=== PATIENT | male | born 1970 | race Caucasian/White ===

== ENCOUNTER 2022-12-20 23:14 | Emergency (ER) | payer MEDICARE ==
[2022-12-20 23:24] VITALS: BP 147/83
[2022-12-20] MEDS ORDERED: AMOX/CLAV 875 MG/125 MG TABLET PO STA (23:32)
--- NOTE | 2022-12-20 23:39 | ED Physician Documentation ---
PD HPI UPPER EXT INJURY - Stated complaint Stated Complaint: CAT BITE - Chief complaint Chief Complaint: Wound - History obtained from History obtained from: Patient - Additonal information Additional information: Patient is a 52-year-old male presenting for evaluation of cat scratches and bites to both hands that occurred tonight. Patient is visiting a friend with his cat from [place] and states that his cat is irritated in a new environment.The friend that he is staying at also sustained a bite and is also being evaluated here. Patient states he has had a cat approximately 1 month and is unsure of its immunizations.Cat is otherwise been acting appropriately. Patient reports his last tetanus was 2 years ago. He denies taking a blood thinner or being diabetic. Review of Systems Constitutional: denies: Fever Cardiac: denies: Chest pain / pressure Respiratory: denies: Dyspnea Skin: reports: Laceration (s) PD PAST MEDICAL HISTORY - Present Medications Home Medications: Ambulatory Orders Medication Instructions Recorded Confirmed Amox/Clav 875/125 [Augmentin] 1 each PO Q12H #14 tablet 12/20/22 - Allergies Allergies/Adverse Reactions: Allergies Allergy/AdvReac Type Severity Reaction Status Date / Time No Known Drug Allergies Allergy Verified 12/20/22 23:22 PD ED PE NORMAL - General General: Alert and oriented X 3, No acute distress, Well developed/nourished - HEENT HEENT: Atraumatic - Neck Neck: Supple, no meningeal sign - Cardiac Cardiac: Strong equal pulses - Respiratory Respiratory: No respiratory distress - Extremities Extremities: Other (Multiple superficial lacerations and wounds to bilateral hands on the dorsal surfaces, no surrounding erythema, normal range of motion at all joints, motor and sensation intact) Results - Vitals Vitals: Vital Signs - 24 hr 12/20/22 23:22 Temperature 36.5 C Heart Rate 83 Respiratory 16 Rate Blood Pressure 147/83 H O2 Saturation 98 Oxygen O2 Source Room air PD Medical Decision Making - ED course ED course: Patient with superficial wounds to both hands from cat bite and scratches. His tetanus is up-to-date. No current signs for infection. No signs of tendon injury. Bleeding is controlled.Patient to be started on Augmentin. Understands treatment plan with continued antibiotics as well as wound care. He is advised on concerning symptoms to return for. Cat Belongs to the patient and he is able to monitor it for any abnormal symptoms. Departure - Departure Disposition: 01 Home, Self Care Clinical Impression: Cat bite of multiple sites, Cat scratch of multiple sites Condition: Stable Instructions: Bites Scratches Animal, ED Bite Animal General Prescriptions: Amox/Clav 875/125 [Augmentin] 1 each PO Q12H #14 tablet Comments: Please continue to keep your wounds clean and dry. I am starting you on an antibiotic and have sent this prescription to [facility] [place]. Return to the emergency department with any concerning symptoms Such as infection. I would recommend taking your cat to a local vet for vaccinations. Discharge Date/Time: 12/20/22 23:49
== END 2022-12-20 23:49 | disposition home or self-care (01) ==
LOC: ED 23:14
DX: S61.459A Open bite of unspecified hand, initial encounter (principal); W55.01XA Bitten by cat, initial encounter
CPT/HCPCS: 99282; 99283; A9270

== ENCOUNTER 2023-09-09 15:41 | Outpatient (CLI) | payer MEDICARE ==
--- NOTE | 2023-09-09 16:07 | XRAY Report ---
PROCEDURE: Wrist 3+V LT INDICATIONS: LEFT WRIST PAIN TECHNIQUE: 3 views of the wrist were acquired. COMPARISON: None. FINDINGS: Bones: Mild degenerative changes at the STT and first CMC joints. No displaced fracture or dislocati on. Soft tissues: No suspicious calcifications. IMPRESSION: Mild degenerative changes at the STT and first CMC joints. No acute radiographic abnormality. If ther e is high concern for further derangement, consider MRI evaluation. Reviewed by: Tobi Enciso MD on 09/09/2023 4:05 PM [facility] Approved by: oTbi Enciso MD on 09/09/2023 4:05 PM PST Station ID: [id number]
== END 2023-09-09 15:42 | disposition home or self-care (01) ==
LOC: DI 15:41
PROVIDERS: ATTEND Physician Assistant
DX: M19.032 Primary osteoarthritis, left wrist (principal)

== ENCOUNTER 2023-10-01 09:49 | Outpatient (CLI) | payer MEDICARE ==
[2023-10-01 11:54] LABS: BASOPHILS # (AUTO) 0.2 10^3/uL (0.0-0.1); BASOPHILS % (AUTO) 1.8 %; EOSINOPHILS # (AUTO) 0.1 10^3/uL (0.0-0.7); EOSINOPHILS % (AUTO) 0.9 %; HCT - HEMATOCRIT 44.7 % (42.0-52.0); HGB - HEMOGLOBIN 14.8 g/dL (14.0-18.0); LYMPHOCYTES # (AUTO) 2.1 10^3/uL (1.5-3.5); LYMPHOCYTES % (AUTO) 19.1 %; MEAN CORPUSCULAR HGB CONC 33.1 g/dL (32.0-36.0); MEAN CORPUSCULAR VOLUME 84.5 fL (80.0-94.0); MEAN PLATELET VOLUME 8.8 fL (7.4-11.4); MONOCYTES # (AUTO) 1.2 10^3/uL (0.0-1.0); MONOCYTES % (AUTO) 10.8 %; NEUTROPHILS # (AUTO) 7.2 10^3/uL (1.5-6.6); NEUTROPHILS % (AUTO) 66.9 %; PLT - PLATELET COUNT 712 10^3/uL (130-450); RED BLOOD COUNT 5.29 10^6/uL (4.70-6.10); RED CELL DISTRIBUTION WIDTH 13.2 % (12.0-15.0); WHITE BLOOD COUNT 10.8 x10^3/uL (4.8-10.8)
[2023-10-01 12:26] LABS: ALBUMIN 4.6 g/dL (3.2-5.5); ALBUMIN/GLOBULIN RATIO 1.3 (1.0-2.2); ALKALINE PHOSPHATASE 96 IU/L (42-121); ALT ALANINE AMINOTRANSFERASE 17 IU/L (10-60); AST ASPARTATE AMINOTRANSFERASE 10 IU/L (10-42); BILIRUBIN,TOTAL 0.5 mg/dL (0.2-1.0); BUN - BLOOD UREA NITROGEN 14 mg/dL (6-20); CALCIUM 9.8 mg/dL (8.5-10.3); CARBON DIOXIDE - CO2 26 mmol/L (21-32); CHLORIDE 102 mmol/L (101-111); CHOL/HDL RATIO 3.3 (<5.0); CHOLESTEROL 127 mg/dL; GFR - MDRD 78 (>89); GLUCOSE 110 mg/dL (74-104); HDL CHOLESTEROL 38 mg/dL; LDL CHOLESTEROL,CALCULATED 64 mg/dL; LDL/HDL RATIO 1.7 (<3.6); POTASSIUM 3.8 mmol/L (3.5-4.5); SODIUM 136 mmol/L (135-145); TOTAL PROTEIN 8.1 g/dL (6.4-8.9); TRIGLYCERIDES 127 mg/dL (48-352); VLDL CHOLESTEROL 25 mg/dL
[2023-10-01 12:43] LABS: THYROID STIMULATING HORMONE 1.83 uIU/mL (0.34-5.60)
== END 2023-10-01 09:50 | disposition home or self-care (01) ==
LOC: LAB.N 09:49
PROVIDERS: ATTEND Physician Assistant
DX: I10 Essential (primary) hypertension (principal); E78.5 Hyperlipidemia, unspecified; Z12.5 Encounter for screening for malignant neoplasm of prostate
CPT/HCPCS: 36415; 80053; 80061; 84443; 85025; G0103; 83721; 84153

== ENCOUNTER 2023-11-13 11:04 | Outpatient (CLI) | payer MEDICARE ==
--- NOTE | 2023-11-13 17:09 | Ultrasound Report ---
PROCEDURE: Abdomen Limited INDICATIONS: THROMBOCYTHEMIA TECHNIQUE: Real-time focused scanning was performed of the left upper quadrant, with image documentation. COMPARISONS: None. FINDINGS: Spleen: Spleen measures 10.8 x 4.3 x 4.7 cm in size. No discrete splenic lesion is noted. No free fluid is seen in left upper quadrant abdomen. IMPRESSION: Normal-appearing spleen. No free fluid. Reviewed by: Sanjay Mcelroy MD on 11/13/2023 5:07 PM PDT Approved by: Sanjay Mcelroy MD on 11/13/2023 5:07 PM PDT Station ID: [id number]
== END 2023-11-13 11:05 | disposition home or self-care (01) ==
LOC: DI 11:04
PROVIDERS: ATTEND Physician Assistant
DX: D47.3 Essential (hemorrhagic) thrombocythemia (principal)

== ENCOUNTER 2024-01-26 15:48 | Outpatient (CLI) | payer MEDICARE | END 2024-01-26 15:49 | disposition home or self-care (01) | LOC: RT 15:48 | PROVIDERS: ATTEND Nurse Practitioner Family | DX: J45.991 Cough variant asthma (principal); D47.3 Essential (hemorrhagic) thrombocythemia | CPT/HCPCS: 36415; 85025; 94010; 94729 ==

== ENCOUNTER 2024-01-26 16:59 | Outpatient (CLI) | payer MEDICARE ==
[2024-01-26 17:28] LABS: BASOPHILS # (AUTO) 0.2 10^3/uL (0.0-0.1); BASOPHILS % (AUTO) 1.5 %; EOSINOPHILS # (AUTO) 0.1 10^3/uL (0.0-0.7); EOSINOPHILS % (AUTO) 0.9 %; HCT - HEMATOCRIT 44.7 % (42.0-52.0); HGB - HEMOGLOBIN 14.3 g/dL (14.0-18.0); LYMPHOCYTES # (AUTO) 2.5 10^3/uL (1.5-3.5); LYMPHOCYTES % (AUTO) 20.7 %; MEAN CORPUSCULAR HEMOGLOBIN 27.2 pg (27.0-31.0); MEAN CORPUSCULAR VOLUME 85.1 fL (80.0-94.0); MEAN PLATELET VOLUME 8.6 fL (7.4-11.4); MONOCYTES # (AUTO) 1.5 10^3/uL (0.0-1.0); MONOCYTES % (AUTO) 12.4 %; NEUTROPHILS # (AUTO) 7.6 10^3/uL (1.5-6.6); NEUTROPHILS % (AUTO) 63.9 %; PLT - PLATELET COUNT 645 10^3/uL (130-450); RED BLOOD COUNT 5.25 10^6/uL (4.70-6.10); RED CELL DISTRIBUTION WIDTH 13.9 % (12.0-15.0)
== END 2024-01-26 17:00 | disposition home or self-care (01) ==
LOC: LAB 16:59
PROVIDERS: ATTEND Nurse Practitioner Family
DX: D47.3 Essential (hemorrhagic) thrombocythemia (principal)
CPT/HCPCS: 36415; 85025